=== PATIENT | male | born 1970 | race Caucasian/White ===

== ENCOUNTER 2017-12-10 21:12 | Emergency (ER) | payer OTHER ==
[~2017-12-10] VITALS: Ht 180.3 cm; Wt 111.0 kg
[~2017-12-10 21:12] MED LIST: LORTA5 PO; SUMA50 PO
[2017-12-10 21:16] VITALS: BP 157/104; PULSE 76; RESP 19; TEMP 98.2; O2SAT 96
[2017-12-10] MEDS ORDERED: IMIT50TA PO (21:23)
[2017-12-10] MEDS ORDERED: LEXA10TA PO (21:23)
[2017-12-10 21:42] VITALS: BP 143/93; PULSE 73; RESP 18; O2SAT 95
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
--- NOTE | 2017-12-11 13:27 | EKG ---
Date Performed: 12/10/2017 Time Performed: 22:11:47 PTAGE: 47 years EKG: Sinus rhythm NORMAL ECG NO PREVIOUS TRACING DOCTOR: Po Hsu Interpretating Date/Time 12/11/2017 13:24:51
== END 2017-12-10 23:58 | disposition home or self-care (01) ==
LOC: NEPD 21:12
DX: T59.811A Toxic effect of smoke, accidental (unintentional), initial encounter (principal); J70.5 Respiratory conditions due to smoke inhalation; R06.02 Shortness of breath; F17.290 Nicotine dependence, other tobacco product, uncomplicated; Y92.59 Other trade areas as the place of occurrence of the external cause
CPT/HCPCS: 36600; 82805; 93005